=== PATIENT | female | born 1980 | race American Indian/Alaskan Native ===

== ENCOUNTER 2019-02-06 09:42 | Emergency (ER) | payer MEDICAID ==
[2019-02-06 10:22] LABS: Bilirubin,Urine NEG (Negative); Blood,Urine MOD (Negative); Color,Urine Yellow (Yellow); Protein,Urine <15 mg/dL mg/dL (Negative); Urobilinogen,Urine < 2.0 mg/dL (<2.0)
[2019-02-06 13:40] LABS: Basophils # (Auto) 0.1 K/mm3 (0.0-0.1); Basophils % (Auto) 1.1 % (0.0-1.8); Eosinophils # (Auto) 0.2 K/mm3 (0.0-0.4); Eosinophils % (Auto) 2.9 % (0.0-4.3); Hemoglobin 11.3 gm/dl (10.1-14.3); Lymphocytes # (Auto) 1.5 K/mm3 (1.2-5.4); Lymphocytes % (Auto) 18.6 % (13.4-35.0); Mean Corpuscular HGB Conc 32 % (30-34); Mean Corpuscular Volume 88 fl (79-97); Monocytes # (Auto) 0.5 K/mm3 (0.0-0.8); Monocytes % (Auto) 5.9 % (0.0-7.3); Platelet Count 437 K/mm3 (140-440); Red Blood Count 3.99 M/mm3 (3.65-5.03); Red Cell Distribution Width 17.2 % (13.2-15.2)
--- NOTE | 2019-02-06 16:51 | Emergency Department Report ---
ED HPI - General Chief complaint: Vaginal Bleeding Stated complaint: VAG BLEED Time Seen by Provider: 02/06/19 10:17 Source: patient Mode of arrival: Ambulatory Limitations: No Limitations - History of Present Illness Initial comments: Patient is a 38-year-old [place] female who has a past medical history of hypertension presenting with vaginal bleeding. Patient states that she is approximately 6 weeks . She has some lower abdominal crampiness. Bleeding started yesterday and was light was now is having his menses. Patient states the pain is minimal 3 out of 10 in severity. She denies any nausea vomiting fevers chills, cold or congestion at this time. - Related Data Allergies Allergy/AdvReac Type Severity Reaction Status Date / Time Latex, Natural Rubber Allergy Hives Verified 02/06/19 09:49 ED Review of Systems ROS: Stated complaint: VAG BLEED Other details as noted in HPI Comment: All other systems reviewed and negative ED Past Medical Hx - Past Medical History Previous Medical History?: Yes Hx Hypertension: Yes - Surgical History Past Surgical History?: No - Social History Smoking Status: Never Smoker Substance Use Type: None ED Physical Exam - General Limitations: No Limitations General appearance: alert, in no apparent distress - Head Head exam: Present: atraumatic, normocephalic - Eye Eye exam: Present: normal appearance - ENT ENT exam: Present: mucous membranes moist - Neck Neck exam: Present: normal inspection - Respiratory Respiratory exam: Present: normal lung sounds bilaterally. Absent: respiratory distress, wheezes, rales, rhonchi - Cardiovascular Cardiovascular Exam: Present: regular rate, normal rhythm. Absent: systolic murmur, diastolic murmur, rubs, gallop - GI/Abdominal GI/Abdominal exam: Present: soft, tenderness (mild suprapubic ), normal bowel sounds. Absent: distended, guarding, rebound, rigid - Extremities Exam Extremities exam: Present: normal inspection - Back Exam Back exam: Present: normal inspection - Neurological Exam Neurological exam: Present: alert, oriented X3 - Psychiatric Psychiatric exam: Present: normal affect, normal mood - Skin Skin exam: Present: warm, dry, intact, normal color. Absent: rash ED Course Vital Signs 02/06/19 09:50 Temperature 98.5 F Pulse Rate 92 H Respiratory 16 Rate Blood Pressure 143/84 O2 Sat by Pulse 96 Oximetry ED Medical Decision Making - Lab Data Result diagrams: 02/06/19 10:19 Lab Results 02/06/19 02/06/19 02/06/19 Range/Units 10:11 10:19 10:19 WBC 8.3 (4.5-11.0) K/mm3 RBC 3.99 (3.65-5.03) M/mm3 Hgb 11.3 (10.1-14.3) gm/dl Hct 35.0 (30.3-42.9) % MCV 88 (79-97) fl MCH 28 (28-32) pg MCHC 32 (30-34) % RDW 17.2 H (13.2-15.2) % Plt Count 437 (140-440) K/mm3 Lymph % (Auto) 18.6 (13.4-35.0) % Person % (Auto) 5.9 (0.0-7.3) % Eos % (Auto) 2.9 (0.0-4.3) % Baso % (Auto) 1.1 (0.0-1.8) % Lymph # 1.5 (1.2-5.4) K/mm3 Person # 0.5 (0.0-0.8) K/mm3 Eos # 0.2 (0.0-0.4) K/mm3 Baso # 0.1 (0.0-0.1) K/mm3 Seg Neutrophils % 71.5 H (40.0-70.0) % Seg Neutrophils # 5.9 (1.8-7.7) K/mm3 HCG, Quant 70316 H (0-4) mIU/mL Urine Color Yellow (Yellow) Urine Turbidity Clear (Clear) Urine pH 6.0 (5.0-7.0) Ur Specific [place] 1.014 (1.003-1.030) Urine Protein <15 mg/dl (Negative) mg/dL Urine Glucose (UA) Neg (Negative) mg/dL Urine Ketones Neg (Negative) mg/dL Urine Blood Mod (Negative) Urine Nitrite Neg (Negative) Urine Bilirubin Neg (Negative) Urine Urobilinogen < 2.0 (<2.0) mg/dL Ur Leukocyte Esterase Neg (Negative) Urine WBC (Auto) 1.0 (0.0-6.0) /HPF Urine RBC (Auto) 2.0 (0.0-6.0) /HPF U Epithel Cells (Auto) 1.0 (0-13.0) /HPF Blood Type 02/06/19 Range/Units 10:19 WBC (4.5-11.0) K/mm3 RBC (3.65-5.03) M/mm3 Hgb (10.1-14.3) gm/dl Hct (30.3-42.9) % MCV (79-97) fl MCH (28-32) pg MCHC (30-34) % RDW (13.2-15.2) % Plt Count (140-440) K/mm3 Lymph % (Auto) (13.4-35.0) % Person % (Auto) (0.0-7.3) % Eos % (Auto) (0.0-4.3) % Baso % (Auto) (0.0-1.8) % Lymph # (1.2-5.4) K/mm3 Person # (0.0-0.8) K/mm3 Eos # (0.0-0.4) K/mm3 Baso # (0.0-0.1) K/mm3 Seg Neutrophils % (40.0-70.0) % Seg Neutrophils # (1.8-7.7) K/mm3 HCG, Quant (0-4) mIU/mL Urine Color (Yellow) Urine Turbidity (Clear) Urine pH (5.0-7.0) Ur Specific [place] (1.003-1.030) Urine Protein (Negative) mg/dL Urine Glucose (UA) (Negative) mg/dL Urine Ketones (Negative) mg/dL Urine Blood (Negative) Urine Nitrite (Negative) Urine Bilirubin (Negative) Urine Urobilinogen (<2.0) mg/dL Ur Leukocyte Esterase (Negative) Urine WBC (Auto) (0.0-6.0) /HPF Urine RBC (Auto) (0.0-6.0) /HPF U Epithel Cells (Auto) (0-13.0) /HPF Blood Type O POSITIVE - Radiology Data Radiology results: image reviewed (with a viable IUP) - Medical Decision Making Patient has been diagnosed with threatened miscarriage. She does have a viable IUP and at this time at the time of discharge is just spotting. Patient be discharged home with pelvic rest and bed rest and follow with her [facility] next week. Critical care attestation.: If time is entered above; I have spent that time in minutes in the direct care of this critically ill patient, excluding procedure time. ED Disposition Clinical Impression: Threatened Disposition: DC- TO HOME OR SELFCARE Is pt being admited?: No Does the pt Need Aspirin: No Condition: Stable Instructions: Threatened Miscarriage (ED) Additional Instructions: Please call to make a follow-up appointment with the [facility] in the next week. Please return to the hospital if your bleeding worsens or you have any syncope or near syncopal symptoms Time of Disposition: 17:20
[2019-02-06 17:26] VITALS: BP 147/59
--- NOTE | 2019-02-06 17:55 | Ultrasound Report ---
OB ultrasound first trimester INDICATION: Abdominal pain and bleeding FINDINGS: Transabdominal and transvaginal imaging is performed. Gestational sac measures 15 mm. [place]-rump length measures 6 mm. This corresponds to a sonographic a ge of 6 weeks and 2 days. heart rate is 123 bpm. Yolk sac is seen. A 2.9 cm fibroid is noted in the right aspect of the uterus. There is a small (1.3 cm) subchorionic bleed identified. There is a 2.6 cm complex cystic lesion in the left ovary. This is likely a hemorrhagic cyst. Follow- up ultrasound should be obtained to ensure that this resolves. IMPRESSION: There is a 6 week 2 day intrauterine . There is cardiac activity. There is a small subchorionic bleed. There is a 2.6 cm complex cystic lesion in the left ovary is likely a hemorrhagic corpus luteum cyst. Follow-up ultrasound should be obtained to ensure that this resolves. Signer Name: Amadou Garcia MD Signed: 02/06/2019 5:50 PM Workstation Name: [id number]
== END 2019-02-06 17:26 | disposition home or self-care (01) ==
LOC: ED 09:42
DX: O20.0 Threatened abortion (principal); O10.911 Unspecified pre-existing hypertension complicating pregnancy, first trimester; Z91.09 Other allergy status, other than to drugs and biological substances; Z91.041 Radiographic dye allergy status
CPT/HCPCS: 36415; 76801; 76817; 81001; 84702; 85025; 86900; 86901

== ENCOUNTER 2019-05-18 23:02 | Outpatient (CLI) | payer MEDICAID ==
[2019-05-18 23:31] VITALS: BP 132/72
--- NOTE | 2019-05-19 00:30 | Ultrasound Report ---
Obstetrical limited INDICATION: Abdominal pain. Pelvic pain and FINDINGS: The fetus is in breech position. The placenta is anterior/fundal. No evidence of placental abruption. No previa. The heart rate is 152 bpm IMPRESSION: No evidence of placental abruption. Signer Name: Gregg Henry MD Signed: 05/19/2019 12:26 AM Workstation Name: [id number]
== END 2019-05-19 00:51 | disposition home or self-care (01) ==
LOC: TRG 23:02
PROVIDERS: ATTEND Obstetrics & Gynecology
DX: O47.02 False labor before 37 completed weeks of gestation, second trimester (principal); Z3A.21 21 weeks gestation of pregnancy
CPT/HCPCS: 59025; 76815

== ENCOUNTER 2019-09-05 13:42 | Observation (INO) | payer MEDICAID ==
[2019-09-05] MEDS ORDERED: ACETAMINOPHEN 500 MG TAB PO PRN (15:20)
[2019-09-05 15:45] LABS: Hematocrit 31.6 % (30.3-42.9); Hemoglobin 10.6 gm/dl (10.1-14.3); Mean Corpuscular HGB Conc 34 % (30-34); Mean Corpuscular Volume 103 fl (79-97); Platelet Count 279 K/mm3 (140-440); Red Blood Count 3.09 M/mm3 (3.65-5.03); Red Cell Distribution Width 13.8 % (13.2-15.2)
[2019-09-05 16:02] LABS: Bacteria,Urine 1+ /HPF (Negative); Bilirubin,Urine NEG (Negative); Blood,Urine NEG (Negative); Color,Urine Yellow (Yellow); Hyaline Casts,Urine 1 /LPF; Mucus,Urine FEW /HPF; Protein,Urine <15 mg/dL mg/dL (Negative); RBC,Urine < 1.0 /HPF (0.0-6.0); Urobilinogen,Urine < 2.0 mg/dL (<2.0); WBC,Urine < 1.0 /HPF (0.0-6.0)
[2019-09-05 16:04] LABS: Alanine Aminotransferase 9 units/L (7-56)
[2019-09-05] MEDS ORDERED: LACTATED RINGERS 1,000 ML IV SCH (17:00)
[2019-09-05 17:39] LABS: Uric Acid 3.6 mg/dL (3.5-7.6)
--- NOTE | 2019-09-06 08:09 | History and Physical Report ---
History of Present Illness Date of examination: 09/06/19 Date of admission: 09/05/19 13:44 Chief complaint: High blood pressure History of present illness: Pt is a 38 yo at 36.5 weeks EGA who presents reporting elevated blood pressure at home. She reports a headache. She has received care with [facility]. This has been complicated by advanced maternal age, chronic hypertension, polyhydramnios (resolved), lifestyle controlled pre- gestational diabetes, large for gestational age, and 4cm anterior fibroid. 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 Past History Past Medical History: hypertension (chronic), diabetes (pre-gestational), other (one kidney, congenital) Past Surgical History: no surgical history Family/Genetic History: diabetes, heart disease, hypertension Social history: smoking - Obstetrical History Expected Date of Delivery: 09/29/19 Actual Gestation: 36 Week(s) 5 Day(s) : 3 Para: 1 Hx # Term Pregnancies: 1 Induced : 1 Number of Living Children: 1 Medications and Allergies Allergies Allergy/AdvReac Type Severity Reaction Status Date / Time Latex, Natural Rubber Allergy Severe Hives Verified 05/18/19 23:44 Home Medications Medication Instructions Recorded Confirmed Last Taken Type Vit-Fe Fumar-FA [ 180 mg PO DAILY 09/06/19 09/06/19 09/05/19 08:00 History Vitamin] 180 metroNIDAZOLE [Flagyl] 500 mg PO Q12HR 09/06/19 09/06/19 Unknown History Active Meds: Active Medications Acetaminophen (Tylenol) 1,000 mg PO Q6H PRN PRN Reason: Pain, Mild (1-3) Last Admin: 09/05/19 17:07 Dose: 1,000 mg Documented by: Lactated Ringer's (Lactated Ringers) 1,000 mls @ 125 mls/hr IV DIRECT ERICA Last Admin: 09/05/19 17:35 Dose: 125 mls/hr Documented by: Review of Systems All systems: negative Eyes: no blurred vision Cardiovascular: high blood pressure Genitourinary: contractions Neurological: headaches - Vital Signs Vital signs: Vital Signs Pulse Pulse Ox 86 97 09/05/19 14:48 09/05/19 14:48 Temp Pulse Resp BP Pulse Ox 98.2 F 83 18 158/90 100 09/05/19 20:29 09/06/19 07:22 09/05/19 20:29 09/06/19 07:22 09/05/19 18:26 - Physical Exam Lungs: Positive: Normal air movement Abdomen: Positive: soft Uterus: Positive: enlarged (gravid) - Obstetrical FHR: category 1 Uterine Contraction Monitor Mode: External Uterine Contraction Pattern: Irregular Results Result Diagrams: 09/05/19 15:27 09/05/19 15:27 Abnormal lab results 09/05/19 09/05/19 Range/Units 15:27 15:27 RBC 3.09 L (3.65-5.03) M/mm3 MCV 103 H (79-97) fl MCH 34 H (28-32) pg Creatinine 0.6 L (0.7-1.2) mg/dL Lactate Dehydrogenase 194 H (91-180) units/L All other labs normal. Assessment and Plan A: 38 yo at 36.5 weeks EGA Chronic hypertension, r/o superimposed preeclampsia Rule out labor Pre-gestational DM LGA 4cm anterior fibroid Congenital renal agenesis GBS negative P: 24 hr observation, 24 hr urine protein Tylenol for pain IV fluids Continue to monitor
[2019-09-06 19:23] VITALS: BP 125/69
--- NOTE | 2019-09-06 19:57 | Discharge Summary ---
Providers - Providers Date of Admission: 09/05/19 13:44 Date of discharge: 09/06/19 Attending physician: SUSANNE SAMUEL MD Primary care physician: SUSANNE SAMUEL MD Hospitalization Reason for admission: observation Hospital course: Pt was admitted for observation due to elevated BP and contractions. Her contractions subsided and had only occasional mild range BP. 24 hr urine was collected. She remained without headache, scotomata, RUQ pain, and swelling. She will follow up in the office on 09/10/19. Condition at discharge: Good Disposition: DC-01 TO HOME OR SELFCARE Plan - Provider Discharge Summary Activity: routine, no sex for 6 weeks, no heavy lifting 4 weeks, no strenuous exercise Diet: routine Instructions: routine Additional instructions: [] Smoking cessation referral if applicable(refer to patient education folder for contact #) [] Refer to [facility] Booklet Call your doctor immediately for: * Fever > 100.5 * Heavy vaginal bleeding ( >1 pad per hour) * Severe persistent headache * Shortness of breath * Reddened, hot, painful area to leg or breast * Drainage or odor from incision. * Keep incision clean and dry at all times and follow doctor's instructions regarding bathing/showering - Follow up plan Follow up: SUSANNE SAMUEL MD [Primary Care Provider] - 09/10/19
== END 2019-09-06 20:00 | disposition home or self-care (01) ==
LOC: TRG 13:42 → LD 13:42 → TRG 13:43 → LD 13:44 → TRG 17:32
PROVIDERS: ADMIT Obstetrics & Gynecology; ATTEND Obstetrics & Gynecology
DX: O10.913 Unspecified pre-existing hypertension complicating pregnancy, third trimester (principal); O09.523 Supervision of elderly multigravida, third trimester; O24.113 Pre-existing type 2 diabetes mellitus, in pregnancy, third trimester; E11.9 Type 2 diabetes mellitus without complications; O40.3XX0 Polyhydramnios, third trimester, not applicable or unspecified; O99.333 Smoking (tobacco) complicating pregnancy, third trimester; O36.63X0 Maternal care for excessive fetal growth, third trimester, not applicable or unspecified; O34.13 Maternal care for benign tumor of corpus uteri, third trimester; D25.9 Leiomyoma of uterus, unspecified; N28.9 Disorder of kidney and ureter, unspecified; O99.89 Other specified diseases and conditions complicating pregnancy, childbirth and the puerperium; F17.200 Nicotine dependence, unspecified, uncomplicated; Z79.899 Other long term (current) drug therapy; Z91.040 Latex allergy status; Z3A.36 36 weeks gestation of pregnancy
CPT/HCPCS: 36415; 81001; 82565; 83615; 84156; 84450; 84460; 84550; 85027; G0378; J7120

== ENCOUNTER 2019-09-10 11:04 | Inpatient (IN) | payer MEDICAID ==
--- NOTE | 2019-09-10 12:47 | History and Physical Report ---
History of Present Illness Date of examination: 09/10/19 Date of admission: 09/10/19 11:04 Chief complaint: IOL per MFM History of present illness: This is a 38 yo EDC 09/29/19 at 37 +2 weeks seen by M for AMA, gestational diabetes, and chronic HTN. She has been taking 81 mg ASA for prevention of pree. SHe has a hx of fibroids and had growth scans. SHe has hx of poly which was resolved in . 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 denies: smoking, prescription drug abuse - Obstetrical History Expected Date of Delivery: 09/29/19 Actual Gestation: 37 Week(s) 2 Day(s) : 3 Para: 1 Hx # Term Pregnancies: 1 Number of Pregnancies: 0 Spontaneous Abortions: 1 Induced : 0 Number of Living Children: 1 Medications and Allergies Allergies Allergy/AdvReac Type Severity Reaction Status Date / Time Latex, Natural Rubber Allergy Severe Hives Verified 05/18/19 23:44 Home Medications Medication Instructions Recorded Confirmed Last Taken Type Vit-Fe Fumar-FA [ 180 mg PO DAILY 09/06/19 09/06/19 09/05/19 08:00 History Vitamin] 180 metroNIDAZOLE [Flagyl] 500 mg PO Q12HR 09/06/19 09/06/19 Unknown History Review of Systems All systems: negative - Vital Signs Vital signs: Vital Signs Pulse BP 86 133/67 09/10/19 11:41 09/10/19 11:41 Temp Pulse Resp BP Pulse Ox 98.2 F 90 122/70 09/10/19 12:00 09/10/19 12:42 09/10/19 12:42 - Physical Exam Breasts: Positive: normal Cardiovascular: Regular rate, Normal S1 Lungs: Positive: Clear to auscultation, Normal air movement Abdomen: Positive: normal appearance, soft, normal bowel sounds. Negative: distention, tenderness, guarding Genitourinary (Female): Positive: normal external genitalia, normal perenium Vagina: Positive: normal moisture Uterus: Positive: normal size, normal contour Anus/Rectum: Positive: normal perianal skin Extremities: Positive: normal Deep Tendon Reflex Grade: Normal +2 - Obstetrical FHR: category 1 Results All other labs normal. Assessment and Plan A/P IOL for AMA, cHTN and gest dm at 37 weeks Recommneded by MFM IVF< labs GBS neg will start with cervidil for softening expect vaginal delivery
[2019-09-10] MEDS ORDERED: OXYTOCIN 20 UNIT/1000ML DRIP 20 UNITS/1,000 ML BAG IV SCH (13:00)
[2019-09-10] MEDS ORDERED: MINERAL OIL 30 ML ORAL LIQD PO PRN (13:00)
[2019-09-10] MEDS ORDERED: ONDANSETRON 4 MG/2 ML INJ IV PRN (13:00)
[2019-09-10] MEDS ORDERED: fentaNYL 100 MCG/2 ML INJ IV PRN (13:00)
[2019-09-10] MEDS ORDERED: TERBUTALINE 1 MG/1 ML INJ IVP PRN (13:00)
[2019-09-10] MEDS ORDERED: ePHEDrine SULFATE 50 MG/1 ML INJ IV PRN (13:00)
[2019-09-10] MEDS ORDERED: NALOXONE 0.4 MG/1 ML INJ IV PRN (13:00)
[2019-09-10] MEDS ORDERED: PROMETHAZINE 25 MG TAB PO PRN (13:00)
[2019-09-10] MEDS ORDERED: TERBUTALINE 1 MG/1 ML INJ SUB-Q PRN (13:00)
[2019-09-10] MEDS ORDERED: LIDOCAINE (2%) 20 MG/1 ML VIAL 20 ML MDV INFILTRATI NR (13:00)
[2019-09-10] MEDS ORDERED: OXYTOCIN DRIP 30 UNITS/500 ML BAG IV SCH (13:00)
[2019-09-10 13:33] LABS: Hemoglobin 11.1 gm/dl (10.1-14.3); Mean Corpuscular HGB Conc 33 % (30-34); Mean Corpuscular Volume 105 fl (79-97); Platelet Count 295 K/mm3 (140-440); Red Blood Count 3.25 M/mm3 (3.65-5.03); Red Cell Distribution Width 13.7 % (13.2-15.2)
[2019-09-10] MEDS ORDERED: DINOPROSTONE 10 MG VAG SUPP VG ONE (14:00)
[2019-09-10] MEDS: LACTATED RINGERS 1,000 ML IV SCH ×2 (16:21→19:54)
[2019-09-10] MEDS: BUTORPHANOL 2 MG/1 ML INJ IV PRN (22:44)
[2019-09-11] MEDS: LACTATED RINGERS 1,000 ML IV SCH ×3 (01:02→17:40)
[2019-09-11] MEDS: BUTORPHANOL 2 MG/1 ML INJ IV PRN (03:40)
[2019-09-11] MEDS: OXYTOCIN DRIP 30 UNITS/500 ML BAG IV SCH ×2 (05:40→07:57)
--- NOTE | 2019-09-11 08:42 | Progress Note ---
Assessment and Plan - Patient Problems (1) Chronic hypertension in Current Visit: Yes Status: Acute Plan to address problem: continue induction with pitocin Subjective - Subjective Date of service: 09/11/19 Interval history: Patient undergoing induction for chronic hypertension. Status post cervidil which has been removed and patient transitioned to pitocin. Patient reports: no new complaints, no loss of fluid Objective - Vital Signs Vital Signs: Vital Signs - 12hr 09/10/19 09/10/19 09/10/19 20:43 20:51 20:56 Pulse Rate 97 H 107 H 94 H Respiratory Rate Blood Pressure 130/74 Blood Pressure [Left] O2 Sat by Pulse 100 100 100 Oximetry 09/10/19 09/10/19 09/10/19 20:57 21:01 21:06 Pulse Rate 90 91 H 91 H Respiratory Rate Blood Pressure 126/79 Blood Pressure [Left] O2 Sat by Pulse 99 100 Oximetry 09/10/19 09/10/19 09/10/19 21:11 21:12 21:16 Pulse Rate 95 H 101 H 101 H Respiratory Rate Blood Pressure 143/69 Blood Pressure [Left] O2 Sat by Pulse 100 100 Oximetry 09/10/19 09/10/19 09/10/19 21:21 21:30 21:31 Pulse Rate 110 H 119 H 103 H Respiratory Rate Blood Pressure 141/68 Blood Pressure [Left] O2 Sat by Pulse 100 100 Oximetry 09/10/19 09/10/19 09/10/19 21:35 21:40 21:42 Pulse Rate 93 H 102 H 97 H Respiratory Rate Blood Pressure 138/65 Blood Pressure [Left] O2 Sat by Pulse 99 100 Oximetry 09/10/19 09/10/19 09/10/19 21:45 21:50 21:58 Pulse Rate 116 H 105 H 89 Respiratory Rate Blood Pressure 138/87 Blood Pressure [Left] O2 Sat by Pulse 100 99 100 Oximetry 09/10/19 09/10/19 09/10/19 22:03 22:08 22:12 Pulse Rate 107 H 91 H 87 Respiratory Rate Blood Pressure 138/81 Blood Pressure [Left] O2 Sat by Pulse 100 100 Oximetry 09/10/19 09/10/19 09/10/19 22:13 22:18 22:23 Pulse Rate 94 H 97 H 93 H Respiratory Rate Blood Pressure Blood Pressure [Left] O2 Sat by Pulse 99 99 100 Oximetry 09/10/19 09/10/19 09/10/19 22:27 22:28 22:33 Pulse Rate 94 H 94 H 89 Respiratory Rate Blood Pressure 138/86 Blood Pressure [Left] O2 Sat by Pulse 99 100 Oximetry 09/10/19 09/10/19 09/10/19 22:40 22:43 22:44 Pulse Rate 93 H 104 H 86 Respiratory Rate Blood Pressure 145/96 136/77 Blood Pressure [Left] O2 Sat by Pulse 100 Oximetry 09/10/19 09/10/19 09/10/19 22:45 22:50 22:55 Pulse Rate 100 H 97 H 88 Respiratory Rate Blood Pressure Blood Pressure [Left] O2 Sat by Pulse 99 97 98 Oximetry 09/10/19 09/10/19 09/10/19 22:57 23:00 23:05 Pulse Rate 77 110 H 85 Respiratory Rate Blood Pressure 139/71 Blood Pressure [Left] O2 Sat by Pulse 96 96 Oximetry 09/10/19 09/10/19 09/10/19 23:10 23:12 23:15 Pulse Rate 85 76 83 Respiratory Rate Blood Pressure 131/69 Blood Pressure [Left] O2 Sat by Pulse 96 95 Oximetry 09/10/19 09/10/19 09/10/19 23:20 23:25 23:27 Pulse Rate 84 86 73 Respiratory Rate Blood Pressure 128/77 Blood Pressure [Left] O2 Sat by Pulse 97 98 Oximetry 09/10/19 09/10/19 09/10/19 23:30 23:33 23:35 Pulse Rate 79 74 80 Respiratory Rate Blood Pressure Blood Pressure [Left] O2 Sat by Pulse 98 94 95 Oximetry 09/10/19 09/10/19 09/10/19 23:40 23:42 23:45 Pulse Rate 83 76 74 Respiratory Rate Blood Pressure 129/77 Blood Pressure [Left] O2 Sat by Pulse 96 96 Oximetry 09/10/19 09/10/19 09/10/19 23:50 23:55 23:57 Pulse Rate 81 88 75 Respiratory Rate Blood Pressure 129/84 Blood Pressure [Left] O2 Sat by Pulse 98 99 Oximetry 09/11/19 09/11/19 09/11/19 00:00 00:05 00:10 Pulse Rate 82 80 77 Respiratory Rate Blood Pressure Blood Pressure [Left] O2 Sat by Pulse 98 98 97 Oximetry 02/06/2009/11/19 09/11/19 00:12 00:15 00:20 Pulse Rate 81 74 75 Respiratory Rate Blood Pressure 126/79 Blood Pressure [Left] O2 Sat by Pulse 98 99 Oximetry 09/11/19 09/11/19 09/11/19 00:25 00:27 00:30 Pulse Rate 86 81 87 Respiratory Rate Blood Pressure 126/77 Blood Pressure [Left] O2 Sat by Pulse 99 100 Oximetry 09/11/19 09/11/19 09/11/19 00:35 00:40 00:42 Pulse Rate 76 79 82 Respiratory Rate Blood Pressure 148/80 Blood Pressure [Left] O2 Sat by Pulse 100 100 Oximetry 09/11/19 09/11/19 09/11/19 00:45 00:50 00:55 Pulse Rate 83 78 77 Respiratory Rate Blood Pressure Blood Pressure [Left] O2 Sat by Pulse 100 100 100 Oximetry 09/11/19 09/11/19 09/11/19 00:57 01:00 01:05 Pulse Rate 80 84 91 H Respiratory Rate Blood Pressure 139/83 Blood Pressure [Left] O2 Sat by Pulse 100 99 Oximetry 09/11/19 09/11/19 09/11/19 01:12 01:18 01:23 Pulse Rate 94 H 99 H 85 Respiratory Rate Blood Pressure 132/78 Blood Pressure [Left] O2 Sat by Pulse 99 100 Oximetry 09/11/19 09/11/19 09/11/19 01:27 01:28 01:33 Pulse Rate 83 88 91 H Respiratory Rate Blood Pressure 137/76 Blood Pressure [Left] O2 Sat by Pulse 100 100 Oximetry 09/11/19 09/11/19 09/11/19 01:38 01:42 01:43 Pulse Rate 90 85 88 Respiratory Rate Blood Pressure 128/80 Blood Pressure [Left] O2 Sat by Pulse 100 99 Oximetry 09/11/19 09/11/19 09/11/19 01:48 01:53 01:57 Pulse Rate 86 86 86 Respiratory Rate Blood Pressure 122/64 Blood Pressure [Left] O2 Sat by Pulse 100 98 Oximetry 09/11/19 09/11/19 09/11/19 01:58 02:03 02:13 Pulse Rate 86 95 H 109 H Respiratory Rate Blood Pressure Blood Pressure [Left] O2 Sat by Pulse 100 98 100 Oximetry 09/11/19 09/11/19 09/11/19 02:17 02:18 02:23 Pulse Rate 83 93 H 85 Respiratory Rate Blood Pressure 132/75 Blood Pressure [Left] O2 Sat by Pulse 100 99 Oximetry 09/11/19 09/11/19 09/11/19 02:27 02:28 02:33 Pulse Rate 85 86 89 Respiratory Rate Blood Pressure 142/80 Blood Pressure [Left] O2 Sat by Pulse 99 99 Oximetry 09/11/19 09/11/19 09/11/19 02:38 02:42 02:43 Pulse Rate 88 86 93 H Respiratory Rate Blood Pressure 136/72 Blood Pressure [Left] O2 Sat by Pulse 97 96 Oximetry 09/11/19 09/11/19 09/11/19 02:48 02:53 02:58 Pulse Rate 90 93 H 92 H Respiratory Rate Blood Pressure 143/75 Blood Pressure [Left] O2 Sat by Pulse 97 97 97 Oximetry 09/11/19 09/11/19 09/11/19 03:08 03:13 03:18 Pulse Rate 82 89 88 Respiratory Rate Blood Pressure 134/83 Blood Pressure [Left] O2 Sat by Pulse 99 97 97 Oximetry 09/11/19 09/11/19 09/11/19 03:23 03:28 03:33 Pulse Rate 87 94 H 88 Respiratory Rate Blood Pressure 139/78 Blood Pressure [Left] O2 Sat by Pulse 96 98 97 Oximetry 09/11/19 09/11/19 09/11/19 03:38 03:43 03:48 Pulse Rate 91 H 99 H 87 Respiratory Rate Blood Pressure 138/81 Blood Pressure [Left] O2 Sat by Pulse 98 97 97 Oximetry 09/11/19 09/11/19 09/11/19 03:49 03:53 03:57 Pulse Rate 94 H 85 78 Respiratory Rate Blood Pressure 125/74 Blood Pressure [Left] O2 Sat by Pulse 94 100 Oximetry 09/11/19 09/11/19 09/11/19 03:58 04:03 04:08 Pulse Rate 84 83 81 Respiratory Rate Blood Pressure Blood Pressure [Left] O2 Sat by Pulse 100 100 100 Oximetry 09/11/19 09/11/19 09/11/19 04:13 04:18 04:23 Pulse Rate 78 77 81 Respiratory Rate Blood Pressure 139/76 Blood Pressure [Left] O2 Sat by Pulse 99 99 99 Oximetry 09/11/19 09/11/19 09/11/19 04:27 04:28 04:33 Pulse Rate 77 81 77 Respiratory Rate Blood Pressure 118/64 Blood Pressure [Left] O2 Sat by Pulse 100 100 Oximetry 09/11/19 09/11/19 09/11/19 04:38 04:42 04:43 Pulse Rate 89 75 82 Respiratory Rate Blood Pressure 139/82 Blood Pressure [Left] O2 Sat by Pulse 100 100 Oximetry 09/11/19 09/11/19 09/11/19 04:48 04:53 04:57 Pulse Rate 88 79 75 Respiratory Rate Blood Pressure 129/67 Blood Pressure [Left] O2 Sat by Pulse 100 100 Oximetry 09/11/19 09/11/19 09/11/19 04:58 05:03 05:08 Pulse Rate 81 82 90 Respiratory Rate Blood Pressure Blood Pressure [Left] O2 Sat by Pulse 100 100 100 Oximetry 09/11/19 09/11/19 09/11/19 05:13 05:18 05:23 Pulse Rate 80 86 89 Respiratory Rate Blood Pressure 134/75 Blood Pressure [Left] O2 Sat by Pulse 100 99 99 Oximetry 09/11/19 09/11/19 09/11/19 05:27 05:28 05:33 Pulse Rate 81 94 H 89 Respiratory Rate Blood Pressure 138/80 Blood Pressure [Left] O2 Sat by Pulse 99 97 Oximetry 09/11/19 09/11/19 09/11/19 05:38 05:42 05:43 Pulse Rate 92 H 93 H 92 H Respiratory Rate Blood Pressure 110/59 Blood Pressure [Left] O2 Sat by Pulse 98 96 Oximetry 09/11/19 09/11/19 09/11/19 05:48 05:53 05:58 Pulse Rate 94 H 91 H 90 Respiratory Rate Blood Pressure 107/54 Blood Pressure [Left] O2 Sat by Pulse 95 96 96 Oximetry 09/11/19 09/11/19 09/11/19 06:03 06:08 06:12 Pulse Rate 87 92 H 94 H Respiratory Rate Blood Pressure Blood Pressure [Left] O2 Sat by Pulse 95 95 94 Oximetry 09/11/19 09/11/19 09/11/19 06:13 06:14 06:18 Pulse Rate 92 H 88 92 H Respiratory Rate Blood Pressure 108/54 Blood Pressure [Left] O2 Sat by Pulse 96 95 Oximetry 09/11/19 09/11/19 09/11/19 06:20 06:23 06:26 Pulse Rate 97 H 103 H 102 H Respiratory Rate Blood Pressure Blood Pressure [Left] O2 Sat by Pulse 93 95 93 Oximetry 09/11/19 09/11/19 09/11/19 06:27 06:28 06:33 Pulse Rate 93 H 92 H 96 H Respiratory Rate Blood Pressure 117/57 Blood Pressure [Left] O2 Sat by Pulse 95 96 Oximetry 09/11/19 09/11/19 09/11/19 06:35 06:38 06:42 Pulse Rate 100 H 97 H 93 H Respiratory Rate Blood Pressure 104/59 Blood Pressure [Left] O2 Sat by Pulse 94 97 Oximetry 09/11/19 09/11/19 09/11/19 06:43 06:48 06:50 Pulse Rate 96 H 95 H 103 H Respiratory Rate Blood Pressure Blood Pressure [Left] O2 Sat by Pulse 96 96 93 Oximetry 09/11/19 09/11/19 09/11/19 06:53 06:57 06:58 Pulse Rate 90 88 91 H Respiratory Rate Blood Pressure 118/61 Blood Pressure [Left] O2 Sat by Pulse 100 100 Oximetry 09/11/19 09/11/19 09/11/19 07:03 07:08 07:12 Pulse Rate 100 H 97 H 86 Respiratory Rate Blood Pressure 129/59 Blood Pressure [Left] O2 Sat by Pulse 99 100 Oximetry 09/11/19 09/11/19 09/11/19 07:13 07:18 07:53 Pulse Rate 89 102 H 86 Respiratory 16 Rate Blood Pressure Blood Pressure 120/70 [Left] O2 Sat by Pulse 99 99 100 Oximetry 09/11/19 09/11/19 09/11/19 07:54 07:55 08:00 Pulse Rate 86 84 87 Respiratory Rate Blood Pressure 120/70 Blood Pressure [Left] O2 Sat by Pulse 100 100 Oximetry 09/11/19 09/11/19 09/11/19 08:05 08:10 08:15 Pulse Rate 81 84 84 Respiratory Rate Blood Pressure Blood Pressure [Left] O2 Sat by Pulse 100 100 100 Oximetry 09/11/19 09/11/19 09/11/19 08:20 08:25 08:27 Pulse Rate 86 84 82 Respiratory Rate Blood Pressure 112/61 Blood Pressure [Left] O2 Sat by Pulse 100 100 Oximetry 02/11/20 02/11/20 08:30 08:35 Pulse Rate 85 85 Respiratory Rate Blood Pressure Blood Pressure [Left] O2 Sat by Pulse 100 100 Oximetry - Labs Labs: Abnormal Labs 09/10/19 13:05 RBC 3.25 L MCV 105 H MCH 34 H Laboratory Results - last 24 hr 09/10/19 09/10/19 09/10/19 13:05 13:06 18:39 WBC 9.8 RBC 3.25 L Hgb 11.1 Hct 34.0 MCV 105 H MCH 34 H MCHC 33 RDW 13.7 Plt Count 295 POC Glucose 72 Blood Type O POSITIVE Antibody Screen Negative 09/11/19 09/11/19 01:10 05:34 WBC RBC Hgb Hct MCV MCH MCHC RDW Plt Count POC Glucose 88 81 Blood Type Antibody Screen
[2019-09-11] MEDS: miSOPROStol 25 MCG TAB VG PRN ×2 (14:31→19:23)
[2019-09-12] MEDS: miSOPROStol 25 MCG TAB VG PRN ×2 (00:09→06:13)
[2019-09-12] MEDS: LACTATED RINGERS 1,000 ML IV SCH ×4 (08:36→22:17)
--- NOTE | 2019-09-12 11:34 | Progress Note ---
Assessment and Plan A: IUP at 37w4d Induction of Labor Chronic HTN GDM AMA P: Continue induction of labor Subjective - Subjective Date of service: 09/12/19 Principal diagnosis: CHTN, GDM, AMA undergoing IOL at term Interval history: Pt now uncomfortable with contractions for the past 30 minutes. Patient reports: no new complaints, no loss of fluid Objective - Vital Signs Vital Signs: Vital Signs - 12hr 09/11/19 09/11/19 09/11/19 23:39 23:44 23:49 Temperature Pulse Rate 88 89 90 Blood Pressure O2 Sat by Pulse 98 98 98 Oximetry 09/11/19 09/11/19 09/11/19 23:54 23:57 23:59 Temperature Pulse Rate 90 87 91 H Blood Pressure 129/77 O2 Sat by Pulse 98 98 Oximetry 09/12/19 09/12/19 09/12/19 00:04 00:09 00:14 Temperature Pulse Rate 89 96 H 87 Blood Pressure O2 Sat by Pulse 96 98 99 Oximetry 09/12/19 09/12/19 09/12/19 00:27 00:28 00:32 Temperature Pulse Rate 87 77 82 Blood Pressure 133/74 O2 Sat by Pulse 98 98 Oximetry 09/12/19 09/12/19 09/12/19 00:35 00:37 00:40 Temperature Pulse Rate 90 82 86 Blood Pressure O2 Sat by Pulse 94 96 91 Oximetry 09/12/19 09/12/19 09/12/19 00:42 00:47 00:49 Temperature Pulse Rate 84 85 91 H Blood Pressure O2 Sat by Pulse 96 96 93 Oximetry 09/12/19 09/12/19 09/12/19 00:52 00:57 01:02 Temperature Pulse Rate 86 85 87 Blood Pressure 119/63 O2 Sat by Pulse 95 100 100 Oximetry 09/12/19 09/12/19 09/12/19 01:11 01:16 01:21 Temperature Pulse Rate 87 80 83 Blood Pressure O2 Sat by Pulse 100 100 100 Oximetry 09/12/19 09/12/19 09/12/19 01:26 01:31 01:36 Temperature Pulse Rate 90 87 88 Blood Pressure O2 Sat by Pulse 99 99 98 Oximetry 09/12/19 09/12/19 09/12/19 01:42 01:47 01:52 Temperature Pulse Rate 89 76 77 Blood Pressure 126/73 O2 Sat by Pulse 99 100 100 Oximetry 09/12/19 09/12/19 09/12/19 01:57 01:58 02:02 Temperature Pulse Rate 81 78 82 Blood Pressure 130/75 O2 Sat by Pulse 100 100 Oximetry 09/12/19 09/12/19 09/12/19 02:07 02:12 02:32 Temperature Pulse Rate 81 89 96 H Blood Pressure O2 Sat by Pulse 100 100 98 Oximetry 09/12/19 09/12/19 09/12/19 02:37 02:42 02:47 Temperature Pulse Rate 79 79 77 Blood Pressure O2 Sat by Pulse 99 99 100 Oximetry 09/12/19 09/12/19 09/12/19 02:58 03:10 03:15 Temperature Pulse Rate 80 86 82 Blood Pressure 135/79 O2 Sat by Pulse 98 98 Oximetry 09/12/19 09/12/19 09/12/19 03:19 03:20 03:25 Temperature Pulse Rate 84 81 78 Blood Pressure O2 Sat by Pulse 89 99 97 Oximetry 09/12/19 09/12/19 09/12/19 03:28 03:30 03:35 Temperature Pulse Rate 78 72 72 Blood Pressure 119/70 O2 Sat by Pulse 100 100 Oximetry 09/12/19 09/12/19 09/12/19 03:40 03:45 03:50 Temperature Pulse Rate 81 81 82 Blood Pressure O2 Sat by Pulse 98 97 97 Oximetry 09/12/19 09/12/19 09/12/19 03:55 03:58 04:00 Temperature Pulse Rate 80 75 81 Blood Pressure 123/73 O2 Sat by Pulse 100 100 Oximetry 09/12/19 09/12/19 09/12/19 04:05 04:10 04:15 Temperature Pulse Rate 87 86 86 Blood Pressure O2 Sat by Pulse 100 100 100 Oximetry 09/12/19 09/12/19 09/12/19 04:20 04:25 04:29 Temperature Pulse Rate 81 84 88 Blood Pressure 138/86 O2 Sat by Pulse 100 100 Oximetry 09/12/19 09/12/19 09/12/19 04:36 04:41 04:46 Temperature Pulse Rate 89 80 78 Blood Pressure O2 Sat by Pulse 98 98 100 Oximetry 09/12/19 09/12/19 09/12/19 04:51 04:56 04:58 Temperature Pulse Rate 77 81 79 Blood Pressure 121/60 O2 Sat by Pulse 100 99 Oximetry 09/12/19 09/12/19 09/12/19 05:01 05:06 05:11 Temperature Pulse Rate 81 82 99 H Blood Pressure O2 Sat by Pulse 100 98 98 Oximetry 09/12/19 09/12/19 09/12/19 05:16 05:21 05:26 Temperature Pulse Rate 86 86 87 Blood Pressure O2 Sat by Pulse 96 97 96 Oximetry 09/12/19 09/12/19 09/12/19 05:27 05:31 05:35 Temperature Pulse Rate 86 88 86 Blood Pressure 108/61 O2 Sat by Pulse 96 94 Oximetry 09/12/19 09/12/19 09/12/19 05:36 05:41 05:46 Temperature Pulse Rate 87 91 H 94 H Blood Pressure O2 Sat by Pulse 96 96 95 Oximetry 09/12/19 09/12/19 09/12/19 05:51 05:56 05:57 Temperature Pulse Rate 92 H 92 H 84 Blood Pressure 100/58 O2 Sat by Pulse 95 96 Oximetry 09/12/19 09/12/19 09/12/19 05:58 06:05 06:10 Temperature Pulse Rate 95 H 82 78 Blood Pressure O2 Sat by Pulse 94 98 99 Oximetry 09/12/19 09/12/19 09/12/19 06:15 06:20 06:25 Temperature Pulse Rate 98 H 79 85 Blood Pressure O2 Sat by Pulse 100 100 100 Oximetry 09/12/19 09/12/19 09/12/19 06:28 06:30 06:35 Temperature Pulse Rate 79 78 79 Blood Pressure 136/77 O2 Sat by Pulse 100 100 Oximetry 09/12/19 09/12/19 09/12/19 06:40 06:45 06:50 Temperature Pulse Rate 83 80 82 Blood Pressure O2 Sat by Pulse 98 99 100 Oximetry 09/12/19 09/12/19 09/12/19 06:55 06:58 07:00 Temperature Pulse Rate 85 81 87 Blood Pressure 140/73 O2 Sat by Pulse 98 98 Oximetry 09/12/19 09/12/19 09/12/19 07:05 07:10 07:15 Temperature Pulse Rate 86 85 95 H Blood Pressure O2 Sat by Pulse 98 97 97 Oximetry 02/12/20 02/12/20 02/12/20 07:24 07:28 07:29 Temperature Pulse Rate 87 82 83 Blood Pressure 131/68 O2 Sat by Pulse 98 96 Oximetry 09/12/19 09/12/19 09/12/19 07:34 07:39 07:44 Temperature Pulse Rate 82 85 81 Blood Pressure O2 Sat by Pulse 97 97 98 Oximetry 09/12/19 09/12/19 09/12/19 07:49 07:54 07:57 Temperature Pulse Rate 83 89 77 Blood Pressure 137/81 O2 Sat by Pulse 97 98 Oximetry 09/12/19 09/12/19 09/12/19 07:59 08:02 08:04 Temperature Pulse Rate 91 H 81 94 H Blood Pressure 141/79 O2 Sat by Pulse 100 99 Oximetry 09/12/19 09/12/19 09/12/19 08:09 08:14 08:19 Temperature Pulse Rate 110 H 98 H 94 H Blood Pressure O2 Sat by Pulse 100 97 99 Oximetry 09/12/19 09/12/19 09/12/19 08:21 08:57 09:28 Temperature 98.4 F Pulse Rate 86 92 H Blood Pressure 127/69 137/76 O2 Sat by Pulse Oximetry 09/12/19 09/12/19 09/12/19 09:36 09:41 09:46 Temperature Pulse Rate 81 88 89 Blood Pressure O2 Sat by Pulse 98 97 97 Oximetry 09/12/19 09/12/19 09/12/19 09:51 09:56 09:58 Temperature Pulse Rate 101 H 91 H 86 Blood Pressure 137/78 O2 Sat by Pulse 99 98 Oximetry 09/12/19 09/12/19 09/12/19 10:01 10:06 10:11 Temperature Pulse Rate 94 H 93 H 85 Blood Pressure O2 Sat by Pulse 99 99 99 Oximetry 09/12/19 09/12/19 09/12/19 10:16 10:21 10:57 Temperature Pulse Rate 87 92 H 88 Blood Pressure 141/89 O2 Sat by Pulse 99 100 Oximetry 09/12/19 11:29 Temperature Pulse Rate 86 Blood Pressure 146/80 O2 Sat by Pulse Oximetry - Exam Breasts: deferred Cervical Dilatation: 0.5 Cervical Effacement Percentage: 20 station: -3 Uterine Contraction Pattern: Regular Uterine Tone Measurement Phase: Resting Uterine Contraction Intensity: Moderate Extremities: normal - Labs Labs: Abnormal Labs 02/10/20 13:05 RBC 3.25 L MCV 105 H MCH 34 H
[2019-09-12] MEDS: OXYTOCIN DRIP 30 UNITS/500 ML BAG IV SCH (11:48)
[2019-09-12] MEDS ORDERED: DEXMEDETOMIDINE 200 MCG/2 ML VIAL IV ONE (18:30)
[2019-09-12] MEDS ORDERED: ePHEDrine SULFATE 50 MG/1 ML INJ IV PRN (18:48)
[2019-09-12] MEDS ORDERED: NALOXONE 2 MG/2 ML INJ IV PRN (18:48)
--- NOTE | 2019-09-12 18:50 | Anesthesia Consultation ---
Anesthesia Consult and Med Hx Date of service: 09/12/19 - Airway Anesthetic Teeth Evaluation: Good ROM Head & Neck: Adequate Mental/Hyoid Distance: Adequate Mallampati Class: Class II Intubation Access Assessment: Probably Good - Pulmonary Exam CTA: Yes - Cardiac Exam Cardiac Exam: RRR - Pre-Operative Health Status ASA Pre-Surgery Classification: ASA3 Proposed Anesthetic Plan: Epidural - Pulmonary Hx Asthma: No COPD: No Hx Pneumonia: No - Cardiovascular System Hx Hypertension: Yes - Central Nervous System Hx Seizures: No Hx Psychiatric Problems: No - Endocrine Hx Renal Disease: No Hx End Stage Renal Disease: No Hx Non-Insulin Dependent Diabetes: Yes Hx Hypothyroidism: No Hx Hyperthyroidism: No - Hematic Hx Anemia: No Hx Sickle Cell Disease: No - Other Systems Hx Alcohol Use: No
[2019-09-12] MEDS ORDERED: fentaNYL-BUPIV 2 MCG/ML-0.125% 200 MCG/100 ML BAG EPIDURAL SCH (19:00)
[2019-09-12] MEDS ORDERED: METOCLOPRAMIDE 10 MG/2 ML INJ ONE (21:13)
[2019-09-12] MEDS ORDERED: BICITRA ORAL LIQD 30ML ONE (21:13)
[2019-09-12] MEDS ORDERED: FAMOTIDINE 20 MG/2 ML INJ IV ONE ×2 (21:13→21:29)
[2019-09-12] MEDS ORDERED: ceFAZolin/Water 2 GM/20 ML 2 GM/20 ML SYRINGE IV ONE (21:14)
[2019-09-12] MEDS ORDERED: METOCLOPRAMIDE 10 MG/2 ML INJ IV ONE (21:29)
[2019-09-12] MEDS ORDERED: BICITRA ORAL LIQD 30ML PO ONE (21:29)
[2019-09-12] MEDS ORDERED: miSOPROStol 200 MCG TAB PR ONE (21:31)
[2019-09-12] MEDS ORDERED: OXYTOCIN 20 UNIT/1000ML DRIP 20 UNITS/1,000 ML BAG IV SCH (22:00)
[2019-09-12] MEDS ORDERED: ceFAZolin/Water 2 GM/20 ML 2 GM/20 ML SYRINGE IV NR (22:00)
[2019-09-12] MEDS ORDERED: LACTATED RINGERS 1,000 ML IV SCH (22:00)
[2019-09-12] MEDS ORDERED: OXYTOCIN 10 UNIT/1 ML INJ ONE (22:15)
[2019-09-12] MEDS ORDERED: LIDOCAINE MPF (2%) 20 MG/1 ML VIAL 5 ML ONE (22:15)
[2019-09-12] MEDS ORDERED: KETOROLAC 30 MG/1 ML INJ ONE (22:15)
[2019-09-12] MEDS ORDERED: WATER FOR IRRIG STERILE 1,500 ML BOTTLE IR ONE (22:17)
[2019-09-12] MEDS ORDERED: ceFAZolin/STERILE WATER 2 GM/20 ML SYRINGE IV ONE (22:17)
[2019-09-12] MEDS ORDERED: SODIUM CHLORIDE 0.9% IRR 1,500 ML BOTTLE IR ONE (22:17)
[2019-09-12] MEDS ORDERED: dexAMETHasone 20 MG/5 ML VIAL ONE (22:23)
[2019-09-12] MEDS ORDERED: LIDOCAINE 2%/EPINEPHRINE 1:200,000 VIAL (20 ML) INFILTRATI ONE (23:05)
[2019-09-12] MEDS ORDERED: HETASTARCH 6% 500 ML IV ONE (23:09)
--- NOTE | 2019-09-12 23:54 | Procedure Note ---
OB Delivery Note - Delivery Date of Delivery: 09/12/19 Surgeon: GRANT RAHMAN Estimated blood loss: other (2000 ML) - Section Preop diagnosis: arrest of dilation, nonreassuring FHR tracing, desires sterilization Postop diagnosis: same section procedure: section, primary low transverse, bilateral tubal ligation Disposition: PACU Complications: intra-op hemorrhage Narrative: Please see operative report. - Infant A at 1 minute: 8 at 5 minutes: 9 Infant Gender: Female (3360g (7lb 6.5oz) @ 2229 pm)
--- NOTE | 2019-09-12 23:54 | Operative Report ---
Operative Report Operative Report: Date of procedure: September 12, 2019 Preoperative diagnosis: 1) IUP at 37w4d 2) Arrest of Dilation 3) Nonreassuring status 4) Chronic HTN 5) Gestational Diabetes 6) Obesity 7) AMA 8) Undesired Fertility Postoperative diagnosis: Same 9) Intraoperative Hemorrhage Procedure: 1) Primary low transverse section 2) Bilateral tubal ligation via modified Dunean method Surgeon: Cindi Ponce M.D. Anesthesia: Regional Findings: 1) Viable female , Apgars 8 and 9, weight 3360g, (7 lb 6.5 oz) in cephalic presentation 2) Normal appearing ovaries and tubes 3) Multiple large vessels traversing the lower uterine segment Estimated blood loss: 1000 mL Urine output: 100 mL, clear but concentrated at the end of the procedure Drains: Yuen to gravity Specimens: Tubal segments to pathology Complications: Intraoperative Hemorrhage. Counts correct x 3 Disposition: Stable to PACU Indication for procedure: Pt is a 38 year old -[place] female at 37w4d presents for induction of labor and after multiple agents progresses to 3 cm when tracing reveals late decelerations indicative of non-reassuring status remote from delivery. The decision was made to proceed with delivery. The patient does not desire future fertility. Operation in detail: After the risks, benefits, alternatives and complications were explained to the patient she gave informed consent for the procedure. She was subsequently taken to the operating room where regional anesthesia was noted to be adequate. She was then placed in the dorsal supine position with leftward tilt and prepped and draped in a normal sterile fashion. heart tones were noted prior to incision. A timeout was performed. A Pfannenstiel skin incision was made with the knife and carried down to the layer of the fascia with the Bovie. The fascia was incised in the midline and the fascial incision was extended bilaterally with the Bovie. The fascial incision was then stretched. The rectus muscles were then in the midline and partially transected for adequate visualization. The peritoneum was then entered sharply between two Cesia clamps. The peritoneal incision was extended with good visualization of the bladder. The peritoneal incision was then stretched. An Bernardo retractor was placed. The bladder blade was placed. The vesicouterine peritoneum was grasped with smooth pick ups and incised with Metzenbaum scissos. A bladder flap was created and the bladder blade was rep laced. A transverse incision was made with a knife in the lower uterine segment with brisk bleeding from multiple large vessels traversing the lower uterine segment. The hysterotomy was stretched. The head was delivered without difficulty followed by delivery of the shoulders and body. was bulb suctioned at delivery. The cord was clamped and cut and the was handed to NICU staff in attendance. Cord blood was collected. The placenta was then delivered manually. The uterus was cleared of all clots and debris. The hysterotomy was then reapproximated with 1 Vicryl in a running locked fashion. A second layer of the same suture was used in an imbricated fashion. The hysterotomy was inspected and hemostasis was noted. Attention was then turned to the tubal ligation. The left tube was identified, grasped with a janie and followed out to the fimbriae. The tube was suture ligated via a modified Dunean merhod using 0 plain suture. The intervening tubal segment was sent to pathology. The right tube was then identified, followed out to the fimbriae and suture ligated via a modified Dunean method using 0 chromic suture. Hemostasis was noted. Surgicel was placed over the tubal ostia bilaterally. The gutters were irrigated and cleared of all clots and debris. The hysterotomy was again inspected and noted to be hemostatic. Surgicel was placed over the hysterotomy. The peritoneum was reapproximated with 2-0 Vicryl in a running fashion incorporating the rectus muscles. Surgicel was placed over the rectus muscles. The fascia was reapproximated with 0-Vicryl in a running fashion. The subcutaneous tissue was reapproximated with 3-0 Vicryl in a running fashion. The skin was reapproximated with juwan. The incision was then covered with a pressure dressing. The procedure was then ended. The patient tolerated the procedure well and was taken to the PACU in stable condition. All instrument, lap, and needle counts were correct 3. A CBC will be collected 3 hrs postoperatively.
--- NOTE | 2019-09-12 23:56 | Post Anesthesia Evaluation ---
- Post Anesthesia Evaluation Patient Participated: Yes Airway Patent: Yes Stable Respiratory Function: Yes Nausea/Vomiting: No Temp > 96.8F: Yes Pain Manageable: Yes Adequeate Hydration: Yes Anesthesia Complications: No Block Receding Appropriately: Yes
[2019-09-13] MEDS ORDERED: SODIUM CHLORIDE 0.9% 500 ML 500 ML IV ONE (00:14)
[2019-09-13] MEDS ORDERED: WITCH HAZEL/ GLYCERIN PAD TP PRN (02:29)
[2019-09-13] MEDS ORDERED: MAGNESIUM HYDROXIDE (MOM) ORAL LIQD UDC PO PRN (02:29)
[2019-09-13] MEDS ORDERED: OXYTOCIN 20 UNIT/1000ML DRIP 20 UNITS/1,000 ML BAG IV SCH (02:29)
[2019-09-13] MEDS ORDERED: SIMETHICONE 80 MG CHEW TAB PO PRN (02:29)
[2019-09-13] MEDS ORDERED: D5W/LACTATED RINGERS 1,000 ML IV SCH (02:29)
[2019-09-13] MEDS ORDERED: LANOLIN/ZINC/DIMETHICONE (LANSINOH) 7 GM TP PRN (02:29)
[2019-09-13] MEDS ORDERED: ACETAMINOPHEN 325 MG TAB PO PRN (02:29)
[2019-09-13] MEDS ORDERED: MORPHINE 2 MG/1 ML INJ IV PRN (02:29)
[2019-09-13] MEDS ORDERED: MORPHINE 4 MG/1 ML INJ IV PRN (02:29)
[2019-09-13] MEDS ORDERED: NALOXONE 0.4 MG/1 ML INJ IV PRN (02:29)
[2019-09-13] MEDS ORDERED: ONDANSETRON 4 MG/2 ML INJ IV PRN (02:29)
[2019-09-13 04:02] LABS: Hematocrit 29.2 % (30.3-42.9); Hemoglobin 9.9 gm/dl (10.1-14.3); Mean Corpuscular HGB Conc 34 % (30-34); Mean Corpuscular Volume 101 fl (79-97); Platelet Count 258 K/mm3 (140-440); Red Blood Count 2.89 M/mm3 (3.65-5.03); Red Cell Distribution Width 13.2 % (13.2-15.2)
[2019-09-13 04:15] LABS: Alanine Aminotransferase 6 units/L (7-56)
[2019-09-13 04:53] LABS: Uric Acid 6.4 mg/dL (3.5-7.6)
[2019-09-13] MEDS: ceFAZolin/NS 1 GM/50 ML 1 GM/50 ML BAG IV SCH ×2 (06:08→14:30)
[2019-09-13] MEDS ORDERED: SODIUM CHLORIDE 0.9% 1000 ML 1,000 ML IV SCH (06:45)
--- NOTE | 2019-09-13 08:15 | Progress Note ---
Assessment and Plan A: ~ 9 hrs s/p primary at term, bilateral tubal ligation, Intraoperative hemorrhage, chronic HTN, GDM P: Change IV fluid to normal saline. Repeat fasting glucose in the AM. Repeat H/H at 12 pm. Routine postoperative care. Subjective - Subjective Date of service: 09/13/19 Principal diagnosis: CHTN, GDM, AMA undergoing IOL at term Interval history: Pt feeling well, just tired. + minimal flatus Patient reports: appetite normal, flatus, no voiding normally (valverde in place ), no bowel movement, no ambulating normally (SCDs in place ) : doing well Objective - Vital Signs Latest vital signs: Vital Signs Temp Pulse Resp BP BP Pulse Ox 09/13/19 02:15 97.7 F 100 H 20 142/90 100 09/13/19 01:30 68 13 144/90 97 09/13/19 01:15 73 12 138/78 96 09/13/19 01:00 71 14 132/75 97 09/13/19 00:45 77 12 120/74 98 09/13/19 00:30 76 13 112/65 95 09/13/19 00:15 76 13 114/64 96 09/13/19 00:00 73 12 109/61 96 09/12/19 23:45 73 14 91/48 94 09/12/19 23:40 73 11 L 77/35 98 09/12/19 23:35 70 13 72/29 96 09/12/19 23:30 97.4 F L 73 11 L 59/29 98 09/12/19 21:42 84 100 09/12/19 21:37 81 100 09/12/19 21:32 81 100 09/12/19 21:27 84 100 09/12/19 21:22 82 100 09/12/19 21:17 95 H 100 09/12/19 21:15 90 145/72 09/12/19 21:12 90 100 09/12/19 21:07 89 100 09/12/19 21:02 89 100 09/12/19 20:57 72 100 09/12/19 20:52 77 97 09/12/19 20:47 73 98 09/12/19 20:42 72 98 09/12/19 20:37 71 99 09/12/19 20:32 71 100 02/12/20 20:27 71 100 09/12/19 20:22 74 100 09/12/19 20:17 85 100 09/12/19 20:13 90 103/54 09/12/19 20:12 87 98/51 98 09/12/19 20:10 80 94/51 09/12/19 20:08 78 93/52 09/12/19 20:07 77 98 09/12/19 20:06 77 85/46 09/12/19 20:04 75 102/52 09/12/19 20:02 80 81/43 99 09/12/19 20:00 76 91/51 09/12/19 19:58 75 95/55 09/12/19 19:57 74 99 09/12/19 19:56 72 94/52 09/12/19 19:54 76 97/51 09/12/19 19:52 76 84/49 100 09/12/19 19:50 74 99/54 09/12/19 19:48 83 108/53 09/12/19 19:47 88 99 09/12/19 19:46 75 84/43 09/12/19 19:44 74 90/51 09/12/19 19:42 92 H 91/47 99 09/12/19 19:40 74 97/54 09/12/19 19:38 75 96/51 09/12/19 19:37 79 100 09/12/19 19:36 78 81/47 09/12/19 19:34 77 91/54 09/12/19 19:32 79 92/51 100 09/12/19 19:30 78 102/51 09/12/19 19:28 75 92/50 09/12/19 19:27 78 99 09/12/19 19:26 75 91/51 09/12/19 19:24 73 97/50 09/12/19 19:22 75 96/52 100 09/12/19 19:20 72 105/54 09/12/19 19:18 75 98/52 09/12/19 19:17 78 100 02 19:16 77 96/51 09/12/19 19:14 78 105/52 09/12/19 19:12 78 100/51 100 09/12/19 19:10 81 84/49 09/12/19 19:08 77 107/53 09/12/19 19:07 86 100 09/12/19 19:06 81 107/53 09/12/19 19:04 87 99/53 09/12/19 19:02 85 104/51 100 09/12/19 19:00 98.0 F 76 20 101/52 92/50 100 09/12/19 18:58 85 108/58 09/12/19 18:57 95 H 100 09/12/19 18:56 92 H 117/68 09/12/19 18:54 96 H 134/82 09/12/19 18:52 91 H 133/74 100 09/12/19 18:50 90 102/58 09/12/19 18:48 87 107/58 09/12/19 18:47 89 135/82 100 09/12/19 18:44 104 H 165/76 09/12/19 18:42 107 H 171/83 100 09/12/19 18:40 129 H 173/111 09/12/19 18:38 104 H 163/103 09/12/19 18:37 101 H 100 09/12/19 18:36 88 159/77 09/12/19 18:34 100 H 141/94 09/12/19 18:32 103 H 100 09/12/19 18:31 87 90 09/12/19 18:22 92 H 100 09/12/19 18:17 92 H 100 09/12/19 18:15 85 165/85 09/12/19 18:12 85 100 09/12/19 18:07 89 100 09/12/19 18:02 92 H 100 09/12/19 17:57 88 99 09/12/19 17:52 83 99 09/12/19 17:47 90 99 09/12/19 17:42 87 99 09/12/19 17:37 95 H 98 09/12/19 16:57 94 H 137/74 09/12/19 16:28 92 H 137/75 09/12/19 15:58 86 142/69 09/12/19 15:28 88 130/71 09/12/19 14:59 90 140/61 09/12/19 13:58 75 142/75 09/12/19 12:57 85 143/78 09/12/19 12:54 78 146/77 09/12/19 12:40 81 100 09/12/19 12:35 85 100 09/12/19 12:30 79 100 09/12/19 12:28 81 144/85 09/12/19 12:25 88 100 09/12/19 12:20 81 100 09/12/19 12:15 79 99 09/12/19 12:10 87 100 09/12/19 12:05 84 99 09/12/19 12:00 80 99 09/12/19 11:58 74 127/76 09/12/19 11:55 78 100 09/12/19 11:50 93 H 99 09/12/19 11:49 85 134/79 09/12/19 11:29 86 146/80 09/12/19 10:57 88 141/89 09/12/19 10:21 92 H 100 09/12/19 10:16 87 99 09/12/19 10:11 85 99 09/12/19 10:06 93 H 99 09/12/19 10:01 94 H 99 09/12/19 09:58 86 137/78 09/12/19 09:56 91 H 98 09/12/19 09:51 101 H 99 09/12/19 09:46 89 97 09/12/19 09:41 88 97 09/12/19 09:36 81 98 09/12/19 09:28 92 H 137/76 09/12/19 08:57 86 127/69 09/12/19 08:21 98.4 F 09/12/19 08:19 94 H 99 09/12/19 08:14 98 H 97 Intake and Output 09/12/19 09/13/19 09/13/19 22:59 06:59 14:59 Intake Total 2054 Output Total 2199 Balance 2054 -2199 Intake: IV 2054 Lactated Ringers 1,000 ml 2000 @ 125 mls/hr IV DIRECT ERICA Rx#:[id number] PITOCin/NS 30 UNIT/500ML 55 30 units In 500 ml @ 1 MILLIUNITS/MIN 1 mls/hr IV TITR ERICA Rx#:[id number] Output: Urine 2200 Void 1700 Other: Total, Output Amount 1700 Estimated Blood Loss 2,000 - Exam Breasts: Present: deferred Cardiovascular: Present: Regular rate Lungs: Present: Clear to auscultation Abdomen: Present: soft, abnormal bowel sounds (hypoactive ) Uterus: Present: fundal height at umbilicus Extremities: Present: edema (trace) Incision: Present: dressed - Labs Labs: Abnormal lab results 09/10/19 09/13/19 09/13/19 Range/Units 13:06 03:23 03:23 WBC 16.6 H (4.5-11.0) K/mm3 RBC 2.89 L (3.65-5.03) M/mm3 Hgb 9.9 L (10.1-14.3) gm/dl Hct 29.2 L (30.3-42.9) % MCV 101 H (79-97) fl MCH 34 H (28-32) pg Creatinine 0.6 L (0.7-1.2) mg/dL POC Glucose (70-105) ALT 6 L (7-56) units/L Lactate Dehydrogenase 237 H (91-180) units/L Crossmatch See Detail 09/13/19 Range/Units 06:24 WBC (4.5-11.0) K/mm3 RBC (3.65-5.03) M/mm3 Hgb (10.1-14.3) gm/dl Hct (30.3-42.9) % MCV (79-97) fl MCH (28-32) pg Creatinine (0.7-1.2) mg/dL POC Glucose 182 H (70-105) ALT (7-56) units/L Lactate Dehydrogenase (91-180) units/L Crossmatch
[2019-09-13] MEDS: FERROUS SULFATE 325 MG TAB PO SCH (10:00)
[2019-09-13] MEDS: oxyCODONE /ACETAMINOPHEN 5-325MG TAB PO PRN ×3 (10:00→22:12)
[2019-09-13 12:14] LABS: Hematocrit 25.9 % (30.3-42.9); Hemoglobin 8.9 gm/dl (10.1-14.3)
[2019-09-13] MEDS: PRENATAL VIT27-FE FUMARATE-FOLIC ACID VIT TAB PO SCH (17:49)
[2019-09-14] MEDS: oxyCODONE /ACETAMINOPHEN 5-325MG TAB PO PRN ×2 (02:42→09:48)
[2019-09-14] MEDS ORDERED: TETANUS,DIPH,PERTUSS(ACELL) VACCINE 0.5 ML SYRINGE IM ONE (06:00)
[2019-09-14] MEDS ORDERED: MEASLES, MUMPS & RUBELLA 12,500 UNIT/0.5 ML VACCINE SUB-Q ONE (06:00)
--- NOTE | 2019-09-14 08:37 | Progress Note ---
Assessment and Plan A: POD#1 s/p primary at term, bilateral tubal ligation, Intraoperative hemorrhage, chronic HTN, GDM, AMA, Obesity P: Bowel regimen. Encourage ambulation. Positive encouragement. Monitor closely. Subjective - Subjective Date of service: 09/14/19 Principal diagnosis: CHTN, GDM, AMA undergoing IOL at term Interval history: Pt reports "terrible" pain but looks to be in no acute distress. + minimal flatus. Ambulating around room. Patient reports: appetite normal, voiding normally, flatus (minimal), pain poorly controlled, ambulating normally, no bowel movement [place]: doing well Objective - Vital Signs Latest vital signs: Vital Signs Temp Pulse Resp Resp BP BP Pulse Ox 09/13/19 22:51 98.2 F 72 20 132/75 97 09/13/19 22:00 20 09/13/19 16:20 20 09/13/19 14:00 98.6 F 62 16 124/80 09/13/19 10:00 20 Intake and Output 09/13/19 09/14/19 09/14/19 22:59 06:59 14:59 Intake Total 240 240 Balance 240 240 Intake: Oral 240 240 Other: Total, Intake Amount 240 240 # Voids Void 1 1 # Bowel Movements 0 - Exam Breasts: Present: deferred Cardiovascular: Present: Regular rate Lungs: Present: Clear to auscultation Abdomen: Present: soft, distention (moderate ), abnormal bowel sounds (hypoactive ) Uterus: Present: fundal height at umbilicus Extremities: Present: edema (2+) Incision: Present: dressed - Labs Labs: Abnormal lab results 09/13/19 Range/Units 12:00 Hgb 8.9 L (10.1-14.3) gm/dl Hct 25.9 L (30.3-42.9) %
[2019-09-14] MEDS ORDERED: MAGNESIUM CITRATE 300 ML ORAL LIQD PO SCH (09:00)
[2019-09-14] MEDS: FERROUS SULFATE 325 MG TAB PO SCH (09:47)
[2019-09-14] MEDS: PRENATAL VIT27-FE FUMARATE-FOLIC ACID VIT TAB PO SCH (09:48)
[2019-09-14] MEDS: KETOROLAC 30 MG/1 ML INJ IV SCH ×2 (11:03→17:20)
[2019-09-14 16:54] LABS: Hematocrit 25.8 % (30.3-42.9); Hemoglobin 8.6 gm/dl (10.1-14.3)
[2019-09-15] MEDS: KETOROLAC 30 MG/1 ML INJ IV SCH ×2 (06:36→06:40)
[2019-09-15] MEDS: oxyCODONE /ACETAMINOPHEN 5-325MG TAB PO PRN (06:40)
[2019-09-15] MEDS: FERROUS SULFATE 325 MG TAB PO SCH ×2 (09:20→14:17)
[2019-09-15] MEDS: PRENATAL VIT27-FE FUMARATE-FOLIC ACID VIT TAB PO SCH ×2 (09:20→14:17)
[2019-09-15] MEDS ORDERED: IBUPROFEN 800 MG TAB PO SCH (11:00)
--- NOTE | 2019-09-15 12:57 | Progress Note ---
Assessment and Plan POD 3 s/p ltcs with hemorrhage and btl. Pt now improving. She feels better today and reports having a good bowel movement. Pt states that she is now ready to go home on today. Subjective - Subjective Date of service: 09/15/19 Principal diagnosis: CHTN, GDM, AMA undergoing IOL at term Interval history: Pt reports feeling much better on today. Patient reports: appetite normal, voiding normally, pain well controlled, ambulating normally [place]: doing well Objective - Vital Signs Latest vital signs: Vital Signs Temp Pulse Resp BP Pulse Ox 09/15/19 08:35 97.8 F 74 18 134/82 97 09/14/19 22:43 98.0 F 91 H 20 132/85 98 09/14/19 16:35 98.1 F 90 20 124/83 99 Intake and Output 09/14/19 09/15/19 09/15/19 22:59 06:59 14:59 Intake Total 360 120 600 Balance 360 120 600 Intake: Oral 360 120 360 Intake, Free Water 240 Other: Total, Intake Amount 120 120 360 # Voids Void 1 1 1 # Bowel Movements 1 1 - Exam Breasts: Present: deferred Cardiovascular: Present: Regular rate, Normal S1, Normal S2 Lungs: Present: Clear to auscultation, Normal air movement Abdomen: Present: normal appearance, soft, normal bowel sounds Vulva: both: normal Uterus: Present: normal Extremities: Present: normal Incision: Present: normal, dry, intact - Labs Labs: Abnormal lab results 09/10/19 09/14/19 Range/Units 13:06 16:04 Hgb 8.6 L (10.1-14.3) gm/dl Hct 25.8 L (30.3-42.9) % Crossmatch See Detail
--- NOTE | 2019-09-15 13:04 | Discharge Summary ---
Providers - Providers Date of Admission: 09/10/19 11:04 Date of discharge: 09/15/19 Attending physician: SUSANNE SAMUEL MD Primary care physician: SUSANNE SAMUEL MD Hospitalization Reason for admission: induction of labor Delivery: Procedure: repeat low transverse Incision: normal, dry, intact Other procedures: tubal ligation complications: transfusion Discharge diagnosis: IUP at term delivered baby: female Hospital course: unremarkable Condition at discharge: Good Disposition: DC-01 TO HOME OR SELFCARE Plan - Discharge Medications Prescriptions: Docusate Sodium [Colace] 100 mg PO BID PRN #30 capsule PRN Reason: Constipation Ferrous Sulfate [Feosol 325 MG tab] 325 mg PO BID #60 tablet Ibuprofen [Motrin] 800 mg PO Q8HR PRN #30 tablet PRN Reason: Pain, Moderate (4-6) oxyCODONE /ACETAMINOPHEN [Percocet 5/325] 1 tab PO Q6HR PRN #40 tablet PRN Reason: Pain - Provider Discharge Summary Activity: routine, no sex for 6 weeks, no heavy lifting 4 weeks, no strenuous exercise Diet: routine Instructions: routine Additional instructions: [] Smoking cessation referral if applicable(refer to patient education folder f or contact #) [] Refer to [facility]'s [facility] Booklet Call your doctor immediately for: * Fever > 100.5 * Heavy vaginal bleeding ( >1 pad per hour) * Severe persistent headache * Shortness of breath * Reddened, hot, painful area to leg or breast * Drainage or odor from incision. * Keep incision clean and dry at all times and follow doctor's instructions regarding bathing/showering - Follow up plan Follow up: SUSANNE SAMUEL MD [Primary Care Provider] - 14 Days
[2019-09-15 19:10] VITALS: BP 127/74
== END 2019-09-15 18:30 | disposition home or self-care (01) | DRG 765 ==
LOC: LD 11:04 → OB 09-13 01:52
PROVIDERS: ADMIT Obstetrics & Gynecology; ATTEND Obstetrics & Gynecology
PROC: 10D00Z1 Extraction of Products of Conception, Low, Open Approach (ICD-10-PCS; principal; 2019-09-12)
PROC: 0UB70ZZ Excision of Bilateral Fallopian Tubes, Open Approach (ICD-10-PCS; 2019-09-12)
PROC: 3E0234Z Introduction of Serum, Toxoid and Vaccine into Muscle, Percutaneous Approach (ICD-10-PCS; 2019-09-14)
PROC: 3E0134Z Introduction of Serum, Toxoid and Vaccine into Subcutaneous Tissue, Percutaneous Approach (ICD-10-PCS; 2019-09-14)
DX: O76 Abnormality in fetal heart rate and rhythm complicating labor and delivery (principal); O72.1 Other immediate postpartum hemorrhage; D62 Acute posthemorrhagic anemia; O24.429 Gestational diabetes mellitus in childbirth, unspecified control; O99.214 Obesity complicating childbirth; O62.0 Primary inadequate contractions; E66.9 Obesity, unspecified; Z3A.37 37 weeks gestation of pregnancy; Z37.0 Single live birth; Z23 Encounter for immunization; Z83.3 Family history of diabetes mellitus; Z82.49 Family history of ischemic heart disease and other diseases of the circulatory system; Z91.040 Latex allergy status; Z30.2 Encounter for sterilization; Z90.5 Acquired absence of kidney; O90.81 Anemia of the puerperium
CPT/HCPCS: 36415; 82565; 82962; 83615; 84450; 84460; 84550; 85014; 85018; 85027; 86850; 86900; 86901; 86920; 88302; G0378; J0595; J0690; J1100; J1885; J2270; J2590; J2765; J3490; J7030; J7120; J7121

== ENCOUNTER 2019-09-20 20:26 | Emergency (ER) | payer MEDICAID ==
--- NOTE | 2019-09-20 20:46 | Emergency Department Report ---
Blank Doc - Documentation Documentation: 38-year-old female that presents with headache and uncontrolled HTN. PAtient has had last week. This initial assessment/diagnostic orders/clinical plan/treatment(s) is/are subject to change based on patient's health status, clinical progression and re- assessment by fellow clinical providers in the ED. Further treatment and workup at subsequent clinical providers discretion. Patient/guardians urged not to elope from the ED as their condition may be serious if not clinically assessed and managed. Initial orders include: 1- Patient sent to MAIN ED for further evaluation and treatment 2- labs 3- UA 4- CT head
[2019-09-20 21:13] LABS: Basophils # (Auto) 0.1 K/mm3 (0.0-0.1); Basophils % (Auto) 1.3 % (0.0-1.8); Eosinophils # (Auto) 0.4 K/mm3 (0.0-0.4); Eosinophils % (Auto) 5.1 % (0.0-4.3); Hematocrit 31.7 % (30.3-42.9); Hemoglobin 10.4 gm/dl (10.1-14.3); Lymphocytes # (Auto) 1.9 K/mm3 (1.2-5.4); Lymphocytes % (Auto) 22.6 % (13.4-35.0); Mean Corpuscular HGB Conc 33 % (30-34); Mean Corpuscular Volume 100 fl (79-97); Monocytes # (Auto) 0.9 K/mm3 (0.0-0.8); Monocytes % (Auto) 10.6 % (0.0-7.3); Platelet Count 581 K/mm3 (140-440); Red Blood Count 3.17 M/mm3 (3.65-5.03); Red Cell Distribution Width 13.6 % (13.2-15.2)
[2019-09-20 21:34] LABS: BUN/Creatinine Ratio 17; Blood Urea Nitrogen 10 mg/dL (7-17); Hemolysis Index 2
[2019-09-20 21:52] LABS: Bilirubin,Urine NEG (Negative); Blood,Urine LG (Negative); Color,Urine Straw (Yellow); Mucus,Urine FEW /HPF; Protein,Urine <15 mg/dL mg/dL (Negative); Urobilinogen,Urine < 2.0 mg/dL (<2.0)
--- NOTE | 2019-09-20 22:29 | Cat Scan Report ---
CT HEAD WITHOUT CONTRAST HISTORY: headache COMPARISON: None TECHNIQUE: CT imaging of the head was performed in the axial, sagittal, and coronal projections and bone algori thm in axial projection in the soft tissue algorithm. All CT scans at this location are performed using CT dose reduction for ALARA by means of automated e xposure control. CONTRAST: None. FINDINGS: Cerebral and Cerebellar Hemispheres: No evidence of mass or mass effect. No midline shift. No acute hemorrhage. No acute cortical infarction. No extra-axial fluid collection. Ventricles: Normal in size and configuration for age. Osseous Structures: No significant abnormality. Visualized Paranasal Sinuses: No significant abnormality. Additional Findings: None IMPRESSION: 1. No acute intracranial abnormality. NOTE: Acute infarct may not be visible by noncontrast CT. Signer Name: Cj Marc MD Signed: 09/20/2019 10:25 PM Workstation Name: [id number]
[2019-09-20] MEDS ORDERED: METHYLDOPA 250 MG TAB PO ONE (23:00)
[2019-09-20] MEDS ORDERED: NIFEdipine XL 60 MG TAB PO ONE (23:19)
--- NOTE | 2019-09-20 23:46 | Emergency Department Report ---
ED General Adult HPI - General Chief complaint: High BP Stated complaint: ELEVATED BLOOD PRESSURE Time Seen by Provider: 09/20/19 20:44 Source: patient Mode of arrival: Ambulatory Limitations: No Limitations - History of Present Illness Initial comments: 38-year-old female 1 week , presents the ED, with headache, elevated blood pressure. Has had elevated blood pressure during , but did not have antihypertensive to take. No neck pain, no chest pain, no shortness of breath. -: Gradual, days(s) (2) - Related Data Home Medications Medication Instructions Recorded Confirmed Last Taken Vit-Fe Fumar-FA [ 180 mg PO DAILY 09/06/19 09/11/19 09/09/19 Vitamin] metroNIDAZOLE [Flagyl] 500 mg PO Q12HR 09/06/19 09/11/19 09/09/19 Aspirin 1 tab PO DAILY 09/11/19 09/11/19 09/09/19 Valtrex 1 tab PO BID 09/11/19 09/11/19 09/09/19 Previous Rx's Medication Instructions Recorded Last Taken Type Docusate Sodium [Colace] 100 mg PO BID PRN #30 capsule 09/14/19 Unknown Rx Ferrous Sulfate [Feosol 325 MG tab] 325 mg PO BID #60 tablet 09/14/19 Unknown Rx Ibuprofen [Motrin] 800 mg PO Q8HR PRN #30 tablet 09/14/19 Unknown Rx oxyCODONE /ACETAMINOPHEN [Percocet 1 tab PO Q6HR PRN #40 tablet 09/14/19 Unknown Rx 5/325] Methyldopa [Aldomet] 250 mg PO BID 30 Days #60 tablet 09/20/19 Unknown Rx Allergies Allergy/AdvReac Type Severity Reaction Status Date / Time Latex, Natural Rubber Allergy Severe Hives Verified 05/18/19 23:44 ED Review of Systems ROS: Stated complaint: ELEVATED BLOOD PRESSURE Other details as noted in HPI Comment: All other systems reviewed and negative Respiratory: denies: cough Cardiovascular: denies: chest pain Skin: denies: rash Neurological: headache ED Past Medical Hx - Past Medical History Previous Medical History?: Yes Hx Hypertension: Yes Hx Congestive Heart Failure: No Hx Diabetes: Yes Hx Deep Vein Thrombosis: No Hx Renal Disease: No Hx Sickle Cell Disease: No Hx Seizures: No Hx Asthma: No Hx COPD: No Hx HIV: No - Surgical History Past Surgical History?: Yes Additional Surgical History: , Tubal Ligation - Social History Smoking Status: Never Smoker Substance Use Type: None - Medications Home Medications: Home Medications Medication Instructions Recorded Confirmed Last Taken Type Vit-Fe Fumar-FA [ 180 mg PO DAILY 09/06/19 09/11/19 09/09/19 History Vitamin] metroNIDAZOLE [Flagyl] 500 mg PO Q12HR 09/06/19 09/11/19 09/09/19 History Aspirin 1 tab PO DAILY 09/11/19 09/11/19 09/09/19 History Valtrex 1 tab PO BID 09/11/19 09/11/19 09/09/19 History Docusate Sodium [Colace] 100 mg PO BID PRN #30 capsule 09/14/19 Unknown Rx Ferrous Sulfate [Feosol 325 MG tab] 325 mg PO BID #60 tablet 09/14/19 Unknown Rx Ibuprofen [Motrin] 800 mg PO Q8HR PRN #30 tablet 09/14/19 Unknown Rx oxyCODONE /ACETAMINOPHEN [Percocet 1 tab PO Q6HR PRN #40 tablet 09/14/19 Unknown Rx 5/325] Methyldopa [Aldomet] 250 mg PO BID 30 Days #60 tablet 09/20/19 Unknown Rx ED Physical Exam - General Limitations: No Limitations General appearance: alert, in no apparent distress - Head Head exam: Present: atraumatic, normocephalic - Eye Eye exam: Present: normal appearance, PERRL, EOMI - ENT ENT exam: Present: normal exam - Neck Neck exam: Present: normal inspection - Respiratory Respiratory exam: Present: normal lung sounds bilaterally - Cardiovascular Cardiovascular Exam: Present: regular rate, normal rhythm - GI/Abdominal GI/Abdominal exam: Present: soft ED Course Vital Signs 09/20/19 09/20/19 09/20/19 20:39 21:24 21:30 Temperature 98.6 F Pulse Rate 80 76 67 Respiratory 16 9 L 15 Rate Blood Pressure 157/103 147/90 O2 Sat by Pulse 99 100 100 Oximetry 09/20/19 09/20/19 09/20/19 21:53 22:00 22:15 Temperature Pulse Rate 85 71 73 Respiratory 16 11 L 15 Rate Blood Pressure 134/88 143/96 141/87 O2 Sat by Pulse 100 98 Oximetry 09/20/19 09/20/19 09/20/19 22:30 22:45 23:00 Temperature Pulse Rate 73 70 68 Respiratory 14 18 15 Rate Blood Pressure 161/88 166/93 132/76 O2 Sat by Pulse 98 100 99 Oximetry 09/20/19 09/20/19 09/20/19 23:15 23:30 23:41 Temperature Pulse Rate 76 71 82 Respiratory 16 16 Rate Blood Pressure 128/84 128/68 128/68 O2 Sat by Pulse 99 99 Oximetry 09/20/19 09/21/19 23:45 00:00 Temperature Pulse Rate 76 68 Respiratory 14 13 Rate Blood Pressure 140/82 149/82 O2 Sat by Pulse 100 98 Oximetry ED Medical Decision Making - Lab Data Result diagrams: 09/20/19 20:51 09/20/19 20:51 - Medical Decision Making BP control in ED with Procardia, patient discharged with methyldopa twice daily 250 mg p.o. Critical care attestation.: If time is entered above; I have spent that time in minutes in the direct care of this critically ill patient, excluding procedure time. ED Disposition Clinical Impression: Hypertension Qualifiers: Hypertension type: essential hypertension Qualified Code(s): I10 - Essential (primary) hypertension Disposition: DC-01 TO HOME OR SELFCARE Is pt being admited?: No Does the pt Need Aspirin: No Condition: Stable Instructions: Hypertension (ED) Prescriptions: Methyldopa [Aldomet] 250 mg PO BID 30 Days #60 tablet Referrals: PRIMARY CARE, [Primary Care Provider] - 3-5 Days
[2019-09-21 00:11] VITALS: BP 149/82
== END 2019-09-20 23:58 | disposition home or self-care (01) ==
LOC: ED 20:26
DX: O16.5 Unspecified maternal hypertension, complicating the puerperium (principal); O24.93 Unspecified diabetes mellitus in the puerperium; Z79.84 Long term (current) use of oral hypoglycemic drugs; Z98.51 Tubal ligation status; Z98.890 Other specified postprocedural states; Z91.040 Latex allergy status; Z91.09 Other allergy status, other than to drugs and biological substances
CPT/HCPCS: 36415; 70450; 80048; 81001; 85025